=== PATIENT | female | born 1945 | race Caucasian/White ===

== ENCOUNTER 2021-05-03 09:14 | Inpatient (IN) ==
[2021-05-03 10:05] LABS: ABS Eosinophils 0.1 10^3/ul (0-0.6); ABS Lymphocytes 0.5 10^3/ul (1.0-4.8); ABS Monocytes 0.7 10^3/ul (0-0.8); Eosinophil % 2.1 %; Hematocrit 39 % (35-47); Hemoglobin 13.4 g/dL (12.0-16.0); Lymphocyte % 8.1 %; Mean Corpuscular HGB Conc 35 g/dL (31-36); Mean Corpuscular Hemoglobin 31 pg (27-31); Mean Corpuscular Volume 90 fL (80-97); Mean Platelet Volume 9.2 fL (7.4-10.4); Platelet Count 218 10^3/uL (150-450); Red Blood Count 4.33 10^6 /uL (3.70-4.87); Red Cell Distribution Width 13 % (10-15); White Blood Count 6.3 10^3/uL (3.5-10.8)
[2021-05-03 10:25] LABS: ALT 61 U/L (7-52); AST 75 U/L (13-39); Albumin 3.5 g/dL (3.2-5.2); Albumin/Globulin Ratio 1.1 (1-3); Alkaline Phosphatase 302 U/L (35-149); Anion Gap 8 mmol/L (2-11); Blood Urea Nitrogen 12 mg/dL (6-24); C Reactive Protein 159.74 mg/L (<8.01); CO2 Carbon Dioxide 30 mmol/L (22-32); Calcium 8.9 mg/dL (8.6-10.3); Chloride 97 mmol/L (101-111); Creatine Kinase 43 U/L (10-223); Globulin 3.1 g/dL (2-4); Glucose 119 mg/dL (70-100); INR 1.27 (0.86-1.15); Potassium 3.3 mmol/L (3.5-5.0); Sodium 135 mmol/L (135-145); Total Protein 6.6 g/dL (6.4-8.9); eGFR CKD-EPI 85.2 (>60)
[2021-05-03 10:26] LABS: Activated Partial Thrombo Time 28.9 seconds (26.0-38.0)
[2021-05-03 10:51] LABS: Troponin I 0.05 ng/mL (<0.03)
[2021-05-03] MEDS ORDERED: Iohexol 350 (CONTRAST) 500 ML MDV IV ONE (11:34)
[2021-05-03 15:36] LABS: PCO2 Arterial 40 mmHg (35-45); PO2 Arterial 71 mmHg (80-100)
[2021-05-03 16:40] LABS: Ferritin 651.9 ng/mL (11-307)
[2021-05-03] MEDS ORDERED: Remdesivir 100 mg Vial 200 MG in NS 0.9% 250 ml 210 ML IV ONE (16:54)
[2021-05-03] MEDS ORDERED: Azithromycin 500 mg/250 mL NS IVPB ONE (17:00)
[2021-05-03] MEDS ORDERED: Potassium Chlor 20 meq TAB.ER PO ONE (17:49)
[2021-05-03 18:14] LABS: Magnesium 2.1 mg/dL (1.9-2.7)
[2021-05-03 18:44] LABS: Troponin I 0.06 ng/mL (<0.03)
[2021-05-03] MEDS: Enoxaparin 40 MG/0.4 ML SYR SUBCUT SCH (19:32)
[2021-05-03 19:48] LABS: Urine Appearance Clear; Urine Bilirubin Negative (Negative); Urine Blood Negative (Negative); Urine Color Yellow; Urine Glucose Negative (Negative); Urine Ketones Negative (Negative); Urine Nitrite Negative (Negative); Urine Protein Negative (Negative); Urine Specific Gravity 1.032 (1.002-1.030); Urine Urobilinogen Negative (Negative)
[2021-05-03 23:26] LABS: Troponin I 0.04 ng/mL (<0.03)
[2021-05-04 05:46] LABS: ABS Lymphocytes 0.6 10^3/ul (1.0-4.8); ABS Monocytes 0.7 10^3/ul (0-0.8); ABS Neutrophils 4.3 10^3/ul (1.5-7.7); Hematocrit 38 % (35-47); Hemoglobin 12.6 g/dL (12.0-16.0); Lymphocyte % 10.6 %; Mean Corpuscular HGB Conc 34 g/dL (31-36); Mean Corpuscular Hemoglobin 31 pg (27-31); Mean Corpuscular Volume 91 fL (80-97); Mean Platelet Volume 9.6 fL (7.4-10.4); Nucleated Red Blood Cells % 0.1; Platelet Count 273 10^3/uL (150-450); Red Blood Count 4.12 10^6 /uL (3.70-4.87); Red Cell Distribution Width 14 % (10-15); White Blood Count 5.5 10^3/uL (3.5-10.8)
[2021-05-04 05:54] LABS: INR 1.29 (0.86-1.15)
[2021-05-04 06:22] LABS: Albumin 3.1 g/dL (3.2-5.2); CO2 Carbon Dioxide 27 mmol/L (22-32); Calcium 8.8 mg/dL (8.6-10.3); Chloride 102 mmol/L (101-111); Sodium 137 mmol/L (135-145)
[2021-05-04 06:28] LABS: ALT 45 U/L (7-52); Albumin/Globulin Ratio 1.1 (1-3); Alkaline Phosphatase 256 U/L (35-149); Blood Urea Nitrogen 13 mg/dL (6-24); Globulin 2.9 g/dL (2-4); Glucose 118 mg/dL (70-100); eGFR CKD-EPI 89.6 (>60)
[2021-05-04 06:29] LABS: Anion Gap 8 mmol/L (2-11)
[2021-05-04 07:54] LABS: Potassium Redraw 3.6 mmol/L (3.5-5.0)
[2021-05-04] MEDS ORDERED: Potassium Chloride LIQUID 20 MEQ/15 ML LIQUID PO ONE (07:56)
[2021-05-04] MEDS: Aspirin EC 81 mg TAB.EC (enteric coated) PO SCH (10:48)
[2021-05-04] MEDS: Cholecalciferol (VIT D3) 1,000 unit TAB PO SCH (10:50)
[2021-05-04] MEDS: Dexamethasone IV 4 MG/ML VIAL 1 ml VIAL IV SLOW PU SCH (10:50)
[2021-05-04] MEDS: Azithromycin 500 mg/250 ml NS 500 MG/250 ML BAG IVPB SCH (17:02)
[2021-05-04] MEDS: Enoxaparin 40 MG/0.4 ML SYR SUBCUT SCH (20:28)
[2021-05-04] MEDS: Remdesivir 100 mg Vial 100 MG in NS 0.9% 250 ml 230 ML IV SCH (20:28)
[2021-05-05 06:30] LABS: ABS Lymphocytes 0.6 10^3/ul (1.0-4.8); ABS Monocytes 0.8 10^3/ul (0-0.8); ABS Neutrophils 7.9 10^3/ul (1.5-7.7); Hematocrit 36 % (35-47); Hemoglobin 12.5 g/dL (12.0-16.0); Mean Corpuscular HGB Conc 35 g/dL (31-36); Mean Corpuscular Hemoglobin 31 pg (27-31); Mean Corpuscular Volume 89 fL (80-97); Mean Platelet Volume 9.8 fL (7.4-10.4); Platelet Count 290 10^3/uL (150-450); Red Blood Count 4.05 10^6 /uL (3.70-4.87); Red Cell Distribution Width 14 % (10-15); White Blood Count 9.3 10^3/uL (3.5-10.8)
[2021-05-05 06:47] LABS: Albumin/Globulin Ratio 1.1 (1-3); Calcium 8.9 mg/dL (8.6-10.3); Globulin 2.7 g/dL (2-4); INR 1.27 (0.86-1.15); Total Bilirubin 0.6 mg/dL (0.2-1.0); Total Protein 5.7 g/dL (6.4-8.9); eGFR CKD-EPI 79.9 (>60)
[2021-05-05] MEDS: Cholecalciferol (VIT D3) 1,000 unit TAB PO SCH (09:27)
[2021-05-05] MEDS: Dexamethasone IV 4 MG/ML VIAL 1 ml VIAL IV SLOW PU SCH (09:27)
[2021-05-05] MEDS: Aspirin EC 81 mg TAB.EC (enteric coated) PO SCH (09:27)
[2021-05-05] MEDS: Polyethylene Glycol 3350 17 GM PACKET PO SCH (12:46)
[2021-05-05] MEDS: Azithromycin 500 mg/250 ml NS 500 MG/250 ML BAG IVPB SCH (16:34)
[2021-05-05] MEDS: Enoxaparin 40 MG/0.4 ML SYR SUBCUT SCH (20:23)
[2021-05-05] MEDS: Remdesivir 100 mg Vial 100 MG in NS 0.9% 250 ml 230 ML IV SCH (20:23)
[2021-05-06] MEDS: Dexamethasone IV 4 MG/ML VIAL 1 ml VIAL IV SLOW PU SCH (08:52)
[2021-05-06] MEDS: Polyethylene Glycol 3350 17 GM PACKET PO SCH (08:52)
[2021-05-06] MEDS: Cholecalciferol (VIT D3) 1,000 unit TAB PO SCH (09:21)
[2021-05-06] MEDS: Aspirin EC 81 mg TAB.EC (enteric coated) PO SCH (09:21)
[2021-05-06 10:39] LABS: ABS Eosinophils 0.1 10^3/ul (0-0.6); ABS Lymphocytes 0.6 10^3/ul (1.0-4.8); ABS Monocytes 0.8 10^3/ul (0-0.8); ABS Neutrophils 8.7 10^3/ul (1.5-7.7); Eosinophil % 0.8 %; Hematocrit 37 % (35-47); Hemoglobin 12.6 g/dL (12.0-16.0); Lymphocyte % 5.6 %; Mean Corpuscular HGB Conc 34 g/dL (31-36); Mean Corpuscular Hemoglobin 31 pg (27-31); Mean Corpuscular Volume 90 fL (80-97); Mean Platelet Volume 9.2 fL (7.4-10.4); Platelet Count 268 10^3/uL (150-450); Red Blood Count 4.11 10^6 /uL (3.70-4.87); Red Cell Distribution Width 14 % (10-15); White Blood Count 10.1 10^3/uL (3.5-10.8)
[2021-05-06 10:55] LABS: INR 1.29 (0.86-1.15)
[2021-05-06 10:57] LABS: ALT 42 U/L (7-52); Albumin 2.9 g/dL (3.2-5.2); Albumin/Globulin Ratio 1.1 (1-3); Alkaline Phosphatase 211 U/L (35-149); Blood Urea Nitrogen 22 mg/dL (6-24); CO2 Carbon Dioxide 25 mmol/L (22-32); Calcium 8.8 mg/dL (8.6-10.3); Chloride 104 mmol/L (101-111); Globulin 2.6 g/dL (2-4); Glucose 117 mg/dL (70-100); Sodium 137 mmol/L (135-145); Total Protein 5.5 g/dL (6.4-8.9)
[2021-05-06 11:26] LABS: Anion Gap 8 mmol/L (2-11)
[2021-05-06] MEDS ORDERED: Furosemide 40 mg/4 ml IV VIAL IV ONE (13:12)
[2021-05-06 14:34] LABS: Potassium Redraw 4.2 mmol/L (3.5-5.0)
[2021-05-06] MEDS: Azithromycin 500 mg/250 ml NS 500 MG/250 ML BAG IVPB SCH (17:04)
[2021-05-06] MEDS: Remdesivir 100 mg Vial 100 MG in NS 0.9% 250 ml 230 ML IV SCH (19:59)
[2021-05-06] MEDS: Enoxaparin 40 MG/0.4 ML SYR SUBCUT SCH (20:00)
[2021-05-07 05:35] LABS: INR 1.34 (0.86-1.15)
[2021-05-07 05:45] LABS: Albumin 3.1 g/dL (3.2-5.2); Albumin/Globulin Ratio 1.2 (1-3); Calcium 8.5 mg/dL (8.6-10.3); Globulin 2.5 g/dL (2-4); Potassium 3.7 mmol/L (3.5-5.0); Total Bilirubin 0.7 mg/dL (0.2-1.0); Total Protein 5.6 g/dL (6.4-8.9); eGFR CKD-EPI 63.7 (>60)
[2021-05-07] MEDS ORDERED: Furosemide 40 mg/4 ml IV VIAL IV ONE (07:56)
[2021-05-07] MEDS: Aspirin EC 81 mg TAB.EC (enteric coated) PO SCH (08:24)
[2021-05-07] MEDS: Cholecalciferol (VIT D3) 1,000 unit TAB PO SCH (08:24)
[2021-05-07] MEDS: Dexamethasone IV 4 MG/ML VIAL 1 ml VIAL IV SLOW PU SCH (08:25)
[2021-05-07] MEDS: Polyethylene Glycol 3350 17 GM PACKET PO SCH (08:26)
[2021-05-07] MEDS ORDERED: Furosemide 20 mg/2 ml IV VIAL IV ONE (17:18)
[2021-05-07] MEDS: Enoxaparin 40 MG/0.4 ML SYR SUBCUT SCH (20:21)
[2021-05-07] MEDS: Remdesivir 100 mg Vial 100 MG in NS 0.9% 250 ml 230 ML IV SCH (20:24)
[2021-05-08] MEDS ORDERED: Furosemide 40 mg/4 ml IV VIAL IV ONE (07:16)
[2021-05-08 07:23] LABS: INR 1.33 (0.86-1.15)
[2021-05-08 07:24] LABS: Albumin 3.2 g/dL (3.2-5.2); Albumin/Globulin Ratio 1.2 (1-3); Calcium 8.9 mg/dL (8.6-10.3); Globulin 2.7 g/dL (2-4); Magnesium 2.1 mg/dL (1.9-2.7); Phosphorus 3.8 mg/dL (2.5-5.0); Potassium 3.4 mmol/L (3.5-5.0); Total Bilirubin 0.6 mg/dL (0.2-1.0); Total Protein 5.9 g/dL (6.4-8.9); eGFR CKD-EPI 55.1 (>60)
[2021-05-08] MEDS: Dexamethasone IV 4 MG/ML VIAL 1 ml VIAL IV SLOW PU SCH (09:42)
[2021-05-08] MEDS: Aspirin EC 81 mg TAB.EC (enteric coated) PO SCH (09:43)
[2021-05-08] MEDS: Cholecalciferol (VIT D3) 1,000 unit TAB PO SCH (09:43)
[2021-05-08] MEDS: Polyethylene Glycol 3350 17 GM PACKET PO SCH (09:49)
[2021-05-08] MEDS: cefTRIAXone 1 gm/50 mL NS BAG 1 GM/50 ML BAG IVPB SCH (11:18)
[2021-05-08] MEDS: Enoxaparin 40 MG/0.4 ML SYR SUBCUT SCH (22:07)
[2021-05-09 06:22] LABS: Hematocrit 41 % (35-47); Hemoglobin 13.9 g/dL (12.0-16.0); Mean Corpuscular HGB Conc 34 g/dL (31-36); Mean Corpuscular Hemoglobin 31 pg (27-31); Mean Corpuscular Volume 91 fL (80-97); Mean Platelet Volume 9.8 fL (7.4-10.4); Platelet Count 311 10^3/uL (150-450); Red Blood Count 4.54 10^6 /uL (3.70-4.87); Red Cell Distribution Width 14 % (10-15); White Blood Count 8.8 10^3/uL (3.5-10.8)
[2021-05-09 06:35] LABS: Albumin 3.5 g/dL (3.2-5.2); Albumin/Globulin Ratio 1.2 (1-3); Calcium 9.2 mg/dL (8.6-10.3); Globulin 2.9 g/dL (2-4); Magnesium 2.3 mg/dL (1.9-2.7); Potassium 3.7 mmol/L (3.5-5.0); Total Bilirubin 0.7 mg/dL (0.2-1.0); Total Protein 6.4 g/dL (6.4-8.9)
[2021-05-09] MEDS ORDERED: Furosemide 40 mg/4 ml IV VIAL IV ONE (07:16)
[2021-05-09] MEDS: Polyethylene Glycol 3350 17 GM PACKET PO SCH (08:02)
[2021-05-09] MEDS: Dexamethasone IV 4 MG/ML VIAL 1 ml VIAL IV SLOW PU SCH (08:03)
[2021-05-09] MEDS: Cholecalciferol (VIT D3) 1,000 unit TAB PO SCH (08:03)
[2021-05-09] MEDS: Aspirin EC 81 mg TAB.EC (enteric coated) PO SCH (08:03)
[2021-05-09] MEDS: cefTRIAXone 1 gm/50 mL NS BAG 1 GM/50 ML BAG IVPB SCH (10:58)
[2021-05-09] MEDS: Enoxaparin 40 MG/0.4 ML SYR SUBCUT SCH (21:25)
[2021-05-10 05:40] LABS: Hematocrit 38 % (35-47); Hemoglobin 12.9 g/dL (12.0-16.0); Mean Corpuscular HGB Conc 34 g/dL (31-36); Mean Corpuscular Hemoglobin 30 pg (27-31); Mean Corpuscular Volume 89 fL (80-97); Mean Platelet Volume 10.3 fL (7.4-10.4); Platelet Count 286 10^3/uL (150-450); Red Blood Count 4.27 10^6 /uL (3.70-4.87); Red Cell Distribution Width 14 % (10-15); White Blood Count 8.8 10^3/uL (3.5-10.8)
[2021-05-10 06:02] LABS: Calcium 8.8 mg/dL (8.6-10.3); Magnesium 2.2 mg/dL (1.9-2.7); Potassium 3.6 mmol/L (3.5-5.0); eGFR CKD-EPI 59.1 (>60)
[2021-05-10] MEDS ORDERED: Furosemide 40 mg/4 ml IV VIAL IV ONE (08:21)
[2021-05-10] MEDS: Polyethylene Glycol 3350 17 GM PACKET PO SCH (09:44)
[2021-05-10] MEDS: Dexamethasone IV 4 MG/ML VIAL 1 ml VIAL IV SLOW PU SCH (09:44)
[2021-05-10] MEDS: Cholecalciferol (VIT D3) 1,000 unit TAB PO SCH (09:45)
[2021-05-10] MEDS: Aspirin EC 81 mg TAB.EC (enteric coated) PO SCH (09:45)
[2021-05-10] MEDS: cefTRIAXone 1 gm/50 mL NS BAG 1 GM/50 ML BAG IVPB SCH (11:38)
[2021-05-10] MEDS: Enoxaparin 40 MG/0.4 ML SYR SUBCUT SCH (20:57)
[2021-05-11 06:08] LABS: Albumin 3.3 g/dL (3.2-5.2); Albumin/Globulin Ratio 1.3 (1-3); Calcium 8.9 mg/dL (8.6-10.3); Globulin 2.6 g/dL (2-4); Magnesium 2.4 mg/dL (1.9-2.7); Potassium 3.7 mmol/L (3.5-5.0); Total Bilirubin 0.8 mg/dL (0.2-1.0); Total Protein 5.9 g/dL (6.4-8.9)
[2021-05-11] MEDS: Dexamethasone IV 4 MG/ML VIAL 1 ml VIAL IV SLOW PU SCH (10:16)
[2021-05-11] MEDS: Aspirin EC 81 mg TAB.EC (enteric coated) PO SCH (10:18)
[2021-05-11] MEDS: Cholecalciferol (VIT D3) 1,000 unit TAB PO SCH (10:18)
[2021-05-11] MEDS: Polyethylene Glycol 3350 17 GM PACKET PO SCH (10:18)
[2021-05-11] MEDS: cefTRIAXone 1 gm/50 mL NS BAG 1 GM/50 ML BAG IVPB SCH (10:24)
[2021-05-11 11:26] VITALS: BP 122/64
== END 2021-05-11 16:35 | disposition home or self-care (01) | DRG 177 ==
LOC: ED 09:14 → EDHOLD 16:48 → SUATTDRO 16:48 → MED 20:48
PROVIDERS: ADMIT Internal Medicine; ATTEND Hospitalist

== ENCOUNTER 2023-07-10 11:57 | Inpatient (IN) ==
[2023-07-10 15:19] LABS: INR 0.99 (0.83-1.13)
[2023-07-10 15:34] LABS: Calcium 8.6 mg/dL (8.6-10.3); Creatinine, Serum 0.86 mg/dL (0.51-0.95); Potassium 4.4 mmol/L (3.5-5.0); eGFR CKD-EPI 69.1 (>60)
[2023-07-10 15:37] LABS: Albumin 3.4 g/dL (3.2-5.2); Albumin/Globulin Ratio 3.4 (1-3); Magnesium 2.5 mg/dL (1.9-2.7); Total Bilirubin 21.6 mg/dL (0.2-1.0); Total Protein 4.4 g/dL (6.4-8.9)
[2023-07-10] MEDS: Iohexol 300 (CONTRAST) 10 ML SDV IV ONE (17:43)
[2023-07-10] MEDS: NS 0.9% 1000 ml BAG 1,000 ML IV ONE (18:09)
[2023-07-10 19:02] LABS: Anisocytosis 3+; Hematocrit 23.6 % (35-45); Hemoglobin 8.2 g/dL (11.5-14.3); Hypochromasia 2+; Mean Corpuscular Hemoglobin 31.8 pg (27-33); Mean Corpuscular Hgb Conc 34.7 g/dL (31-36); Mean Corpuscular Volume 91.7 fL (80-97); Mean Platelet Volume 10.5 fL (7.5-11.2); Platelet Count 66 10^3/uL (150-450); Polychromasia 1+; Red Blood Count 2.58 10^6/uL (3.63-4.92); Red Cell Distribution Width 21.5 % (12-17); Target Cells 2+
[2023-07-11 05:04] LABS: Direct Bilirubin 9.4 mg/dL (0.03-0.18); Indirect Bilirubin 9.6 mg/dL (0.3-1.0); Phosphorus 3.9 mg/dL (2.5-5.0); Uric Acid 2.4 mg/dL (2.3-6.6)
[2023-07-11 05:43] LABS: Creatinine, Serum 0.82 mg/dL (0.51-0.95); eGFR CKD-EPI 73.2 (>60)
[2023-07-11 05:46] LABS: Albumin/Globulin Ratio 3.3 (1-3); Globulin 0.9 g/dL (2-4); Magnesium 2.3 mg/dL (1.9-2.7); Total Protein 3.9 g/dL (6.4-8.9)
[2023-07-11 05:58] LABS: Hematocrit 25.7 % (35-45); Hemoglobin 8.7 g/dL (11.5-14.3); Mean Corpuscular Hemoglobin 31.3 pg (27-33); Mean Corpuscular Hgb Conc 33.9 g/dL (31-36); Mean Corpuscular Volume 92.4 fL (80-97); Mean Platelet Volume 10.1 fL (7.5-11.2); Platelet Count 68 10^3/uL (150-450); Red Blood Count 2.78 10^6/uL (3.63-4.92); Red Cell Distribution Width 20.8 % (12-17); White Blood Count 6.6 10^3/uL (3.8-11.8)
[2023-07-11] MEDS: Enoxaparin 40 MG/0.4 ML SYR SUBCUT SCH (06:21)
[2023-07-11 06:51] LABS: Activated Partial Thrombo Time 21.6 seconds (26.0-38.0); INR 1.05 (0.83-1.13)
[2023-07-11] MEDS: Aspirin EC 81 mg TAB.EC (enteric coated) PO SCH (09:39)
[2023-07-11] MEDS: Polyethylene Glycol 3350 17 GM PACKET PO SCH (09:40)
[2023-07-11] MEDS: Cholestyramine Resin 4 GM POWDER PO SCH (09:40)
[2023-07-11 11:04] LABS: ABS Lymphocytes 0.1 10^3/ul (1.0-4.8); ABS Monocytes 0.1 10^3/ul (0.0-0.9); ABS Neutrophils 6.4 10^3/ul (1.5-7.6)
[2023-07-11] MEDS ORDERED: Senna TAB 8.6 mg TAB PO PRN (12:11)
[2023-07-11] MEDS ORDERED: Polyethylene Glycol 3350 17 GM PACKET PO PRN (12:11)
[2023-07-11] MEDS: Magnesium Hydroxide LIQ 30 ML UDC PO SCH (13:16)
[2023-07-11] MEDS ORDERED: Sulfur Hexaflouride MICROSPHR 25 MG VIAL ONE (15:56)
[2023-07-12 08:10] LABS: INR 1.08 (0.83-1.13)
[2023-07-12 08:23] LABS: Calcium 7.6 mg/dL (8.6-10.3); Creatinine, Serum 0.8 mg/dL (0.51-0.95); Potassium 4.5 mmol/L (3.5-5.0); eGFR CKD-EPI 75.4 (>60)
[2023-07-12 08:35] LABS: Anisocytosis 3+; Hematocrit 19.9 % (35-45); Macrocytosis 1+; Mean Corpuscular Hemoglobin 31.9 pg (27-33); Mean Corpuscular Hgb Conc 35.1 g/dL (31-36); Mean Platelet Volume 9.6 fL (7.5-11.2); Microcytosis 1+; Platelet Count 53 10^3/uL (150-450); Red Blood Count 2.19 10^6/uL (3.63-4.92); Red Cell Distribution Width 22.3 % (12-17); White Blood Count 2.8 10^3/uL (3.8-11.8)
[2023-07-12 08:37] LABS: Albumin 2.6 g/dL (3.2-5.2); Albumin/Globulin Ratio 3.3 (1-3); Globulin 0.8 g/dL (2-4); Magnesium 2.6 mg/dL (1.9-2.7); Phosphorus 2.4 mg/dL (2.5-5.0); Total Bilirubin 14.2 mg/dL (0.2-1.0); Total Protein 3.4 g/dL (6.4-8.9)
[2023-07-12 08:38] LABS: ABS Lymphocytes 0.1 10^3/ul (1.0-4.8); ABS Neutrophils 2.7 10^3/ul (1.5-7.6)
[2023-07-12] MEDS: Saline NASAL SPRAY 0.65% BTL BOTH NARES PRN (15:07)
[2023-07-12] MEDS: Al Hydrox/Mg Hydrox/Simet LIQ 30 ML UDC PO PRN (15:07)
[2023-07-12] MEDS: Senna TAB 8.6 mg TAB PO SCH (21:14)
[2023-07-13 06:13] LABS: INR 0.98 (0.83-1.13)
[2023-07-13 06:19] LABS: Hematocrit 23.9 % (35-45); Hemoglobin 8.2 g/dL (11.5-14.3); Mean Corpuscular Hgb Conc 34.4 g/dL (31-36); Mean Corpuscular Volume 90.3 fL (80-97); Mean Platelet Volume 9.7 fL (7.5-11.2); Platelet Count 47 10^3/uL (150-450); Red Blood Count 2.65 10^6/uL (3.63-4.92); Red Cell Distribution Width 21.1 % (12-17); White Blood Count 1.9 10^3/uL (3.8-11.8)
[2023-07-13 06:44] LABS: Calcium 7.6 mg/dL (8.6-10.3); Creatinine, Serum 0.74 mg/dL (0.51-0.95); Potassium 4.5 mmol/L (3.5-5.0); eGFR CKD-EPI 82.8 (>60)
[2023-07-13 06:48] LABS: Anisocytosis 1+; Polychromasia 1+
[2023-07-13 06:49] LABS: ABS Lymphocytes 0.1 10^3/ul (1.0-4.8); ABS Monocytes 0.1 10^3/ul (0.0-0.9); ABS Neutrophils 1.7 10^3/ul (1.5-7.6)
[2023-07-13 07:26] LABS: Albumin 2.7 g/dL (3.2-5.2); Globulin 0.9 g/dL (2-4); Magnesium 2.9 mg/dL (1.9-2.7); Phosphorus 1.7 mg/dL (2.5-5.0); Total Bilirubin 12.5 mg/dL (0.2-1.0); Total Protein 3.6 g/dL (6.4-8.9)
[2023-07-14 05:15] LABS: INR 0.96 (0.83-1.13)
[2023-07-14 05:53] LABS: Calcium 7.3 mg/dL (8.6-10.3); Creatinine, Serum 0.78 mg/dL (0.51-0.95); Potassium 4.4 mmol/L (3.5-5.0); eGFR CKD-EPI 77.7 (>60)
[2023-07-14 06:01] LABS: Albumin 2.7 g/dL (3.2-5.2); Albumin/Globulin Ratio 2.7 (1-3); Magnesium 2.7 mg/dL (1.9-2.7); Phosphorus 1.9 mg/dL (2.5-5.0); Total Bilirubin 12.8 mg/dL (0.2-1.0); Total Protein 3.7 g/dL (6.4-8.9)
[2023-07-14 07:15] LABS: Anisocytosis 3+; Hematocrit 23.3 % (35-45); Hemoglobin 8.1 g/dL (11.5-14.3); Macrocytosis 1+; Mean Corpuscular Hemoglobin 31.3 pg (27-33); Mean Corpuscular Hgb Conc 34.7 g/dL (31-36); Mean Corpuscular Volume 90.3 fL (80-97); Mean Platelet Volume 9.5 fL (7.5-11.2); Microcytosis 1+; Platelet Count 38 10^3/uL (150-450); Polychromasia 1+; Red Blood Count 2.58 10^6/uL (3.63-4.92); White Blood Count 2.1 10^3/uL (3.8-11.8)
[2023-07-14 07:17] LABS: ABS Lymphocytes 0.1 10^3/ul (1.0-4.8)
[2023-07-14] MEDS ORDERED: Enoxaparin 40 MG/0.4 ML SYR SUBCUT SCH (09:00)
[2023-07-14] MEDS: NS 0.9% IVPB ONE ×2 (14:08→18:21)
[2023-07-14] MEDS: METHYLPREDNISOLONE SOD SUCC IVPB ONE ×2 (14:08→18:21)
[2023-07-15 05:59] LABS: Calcium 7.4 mg/dL (8.6-10.3); Creatinine, Serum 0.71 mg/dL (0.51-0.95); Potassium 4.5 mmol/L (3.5-5.0)
[2023-07-15 06:13] LABS: Anisocytosis 1+; Hematocrit 20.8 % (35-45); Hemoglobin 7.3 g/dL (11.5-14.3); Large Platelets Present; Mean Corpuscular Hemoglobin 32.1 pg (27-33); Mean Corpuscular Volume 91.8 fL (80-97); Mean Platelet Volume 9.6 fL (7.5-11.2); Platelet Count 42 10^3/uL (150-450); Polychromasia 1+; Red Blood Count 2.27 10^6/uL (3.63-4.92); Red Cell Distribution Width 21.9 % (12-17); White Blood Count 3.2 10^3/uL (3.8-11.8)
[2023-07-15 06:14] LABS: ABS Lymphocytes 0.1 10^3/ul (1.0-4.8); ABS Monocytes 0.1 10^3/ul (0.0-0.9)
[2023-07-15 06:26] LABS: Albumin 2.6 g/dL (3.2-5.2); Albumin/Globulin Ratio 3.3 (1-3); Globulin 0.8 g/dL (2-4); Magnesium 2.4 mg/dL (1.9-2.7); Total Protein 3.4 g/dL (6.4-8.9)
[2023-07-15] MEDS: NS 0.9% IVPB ONE (16:11)
[2023-07-15] MEDS: METHYLPREDNISOLONE SOD SUCC IVPB ONE (16:11)
[2023-07-15] MEDS: Enoxaparin 40 MG/0.4 ML SYR SUBCUT SCH (21:32)
[2023-07-16 08:05] LABS: Calcium 7.4 mg/dL (8.6-10.3); Creatinine, Serum 0.73 mg/dL (0.51-0.95); Potassium 4.3 mmol/L (3.5-5.0); eGFR CKD-EPI 84.1 (>60)
[2023-07-16 08:06] LABS: Hematocrit 23.4 % (35-45); Hemoglobin 8.1 g/dL (11.5-14.3); Mean Corpuscular Hemoglobin 31.8 pg (27-33); Mean Corpuscular Hgb Conc 34.6 g/dL (31-36); Mean Corpuscular Volume 91.9 fL (80-97); Mean Platelet Volume 10.2 fL (7.5-11.2); Platelet Count 49 10^3/uL (150-450); Red Blood Count 2.55 10^6/uL (3.63-4.92); Red Cell Distribution Width 19.7 % (12-17); White Blood Count 4.8 10^3/uL (3.8-11.8)
[2023-07-16 08:21] LABS: Albumin 2.5 g/dL (3.2-5.2); Albumin/Globulin Ratio 3.1 (1-3); Globulin 0.8 g/dL (2-4); Magnesium 2.2 mg/dL (1.9-2.7); Phosphorus 2.4 mg/dL (2.5-5.0); Total Bilirubin 12.2 mg/dL (0.2-1.0); Total Protein 3.3 g/dL (6.4-8.9)
[2023-07-16 10:27] LABS: Anisocytosis 2+; Hypochromasia 1+; Polychromasia 1+
[2023-07-16 10:41] LABS: ABS Lymphocytes 0.1 10^3/ul (1.0-4.8); ABS Monocytes 0.3 10^3/ul (0.0-0.9); ABS Neutrophils 4.4 10^3/ul (1.5-7.6)
[2023-07-16] MEDS: METHYLPREDNISOLONE SOD IV ONE (14:15)
[2023-07-16] MEDS: NS 0.9% IV ONE (14:15)
[2023-07-17 06:28] LABS: Calcium 7.5 mg/dL (8.6-10.3); Creatinine, Serum 0.74 mg/dL (0.51-0.95); Potassium 4.4 mmol/L (3.5-5.0); eGFR CKD-EPI 82.8 (>60)
[2023-07-17 06:50] LABS: Albumin 2.6 g/dL (3.2-5.2); Albumin/Globulin Ratio 2.4 (1-3); Globulin 1.1 g/dL (2-4); Magnesium 2.2 mg/dL (1.9-2.7); Total Bilirubin 13.1 mg/dL (0.2-1.0); Total Protein 3.7 g/dL (6.4-8.9)
[2023-07-17 07:34] LABS: Hematocrit 22.9 % (35-45); Mean Corpuscular Hemoglobin 32.4 pg (27-33); Mean Corpuscular Hgb Conc 35.1 g/dL (31-36); Mean Corpuscular Volume 92.4 fL (80-97); Mean Platelet Volume 10.6 fL (7.5-11.2); Platelet Count 67 10^3/uL (150-450); Red Blood Count 2.48 10^6/uL (3.63-4.92); White Blood Count 5.8 10^3/uL (3.8-11.8)
[2023-07-17 07:35] LABS: Anisocytosis 2+; Macrocytosis 1+; Microcytosis 1+; Polychromasia 1+
[2023-07-17] MEDS: Enoxaparin 40 MG/0.4 ML SYR SUBCUT SCH (13:11)
[2023-07-17] MEDS: Famotidine IV 10 MG/ML 2 ml VIAL (20 mg) IV SLOW PU SCH (13:12)
[2023-07-17] MEDS: PALONOSETRON HCL 0.05 MG/ML (0.25 MG) SYRINGE (0.05 MG/ML) IV ONE (13:12)
[2023-07-17] MEDS: Dexamethasone IV 4 MG/ML VIAL 1 ml VIAL IV SLOW PU SCH (13:34)
[2023-07-17 14:01] LABS: ABS Lymphocytes 0.8 10^3/ul (1.0-4.8); ABS Monocytes 0.2 10^3/ul (0.0-0.9); ABS Neutrophils 4.9 10^3/ul (1.5-7.6)
[2023-07-17] MEDS: MAGNESIUM SULFATE IVPB ONE ×2 (14:17→17:33)
[2023-07-17] MEDS: NS 0.9% IVPB ONE ×3 (14:17→17:33)
[2023-07-17] MEDS: POTASSIUM CHLORIDE IVPB ONE ×2 (14:17→17:33)
[2023-07-17] MEDS: GEMCITABINE IVPB ONE (14:18)
[2023-07-17] MEDS: [UNRECOGNIZED DRUG - OTHER] IVPB ONE (14:18)
[2023-07-17] MEDS: CISPLATIN IVPB ONE (15:33)
[2023-07-18 06:18] LABS: Albumin 2.3 g/dL (3.2-5.2); Albumin/Globulin Ratio 2.9 (1-3); Creatinine, Serum 0.65 mg/dL (0.51-0.95); Globulin 0.8 g/dL (2-4); Magnesium 2.2 mg/dL (1.9-2.7); Potassium 4.2 mmol/L (3.5-5.0); Total Bilirubin 11.3 mg/dL (0.2-1.0); Total Protein 3.1 g/dL (6.4-8.9); eGFR CKD-EPI 90.1 (>60)
[2023-07-18 08:02] LABS: Hematocrit 18.2 % (35-45); Hemoglobin 6.4 g/dL (11.5-14.3); Mean Corpuscular Hemoglobin 32.9 pg (27-33); Mean Corpuscular Hgb Conc 34.9 g/dL (31-36); Mean Corpuscular Volume 94.2 fL (80-97); Mean Platelet Volume 9.6 fL (7.5-11.2); Platelet Count 70 10^3/uL (150-450); Red Blood Count 1.94 10^6/uL (3.63-4.92); Red Cell Distribution Width 25.4 % (12-17); White Blood Count 5.1 10^3/uL (3.8-11.8)
[2023-07-18 10:30] LABS: ABS Lymphocytes 0.4 10^3/uL (1.0-4.8); ABS Monocytes 0.4 10^3/uL (0.0-0.9); ABS Neutrophils 4.4 10^3/uL (1.5-7.6); ABS Nucleated RBC 0.21 10^3/ul; Anisocytosis 3+; Eosinophil % 0.2 %; Lymphocyte % 7.1 %; Macrocytosis 1+; Microcytosis 1+; Nucleated Red Blood Cells % 4.1 %/100WBC (0.0-0.8); Polychromasia 1+
[2023-07-18 18:33] LABS: Hematocrit 25.4 % (35-45); Hemoglobin 8.7 g/dL (11.5-14.3); Mean Corpuscular Hemoglobin 31.7 pg (27-33); Mean Corpuscular Hgb Conc 34.3 g/dL (31-36); Mean Corpuscular Volume 92.3 fL (80-97); Mean Platelet Volume 10.1 fL (7.5-11.2); Platelet Count 85 10^3/uL (150-450); Red Blood Count 2.75 10^6/uL (3.63-4.92); Red Cell Distribution Width 18.6 % (12-17); White Blood Count 6.7 10^3/uL (3.8-11.8)
[2023-07-18 19:27] LABS: RBC Morphology Normal (Normal)
[2023-07-18 19:28] LABS: ABS Lymphocytes 1.4 10^3/uL (1.0-4.8); ABS Monocytes 0.2 10^3/uL (0.0-0.9); ABS Neutrophils 5.1 10^3/uL (1.5-7.6); ABS Nucleated RBC 0.07 10^3/ul; Eosinophil % 0.2 %; Lymphocyte % 21.2 %
[2023-07-19] MEDS: Calcium Carb (TUMS) 500 mg CHEW TAB PO PRN (01:45)
[2023-07-19 07:00] LABS: Calcium 7.2 mg/dL (8.6-10.3); Creatinine, Serum 0.63 mg/dL (0.51-0.95); Potassium 4.5 mmol/L (3.5-5.0); eGFR CKD-EPI 90.7 (>60)
[2023-07-19 07:06] LABS: Albumin 2.4 g/dL (3.2-5.2); Globulin 0.8 g/dL (2-4); Magnesium 2.3 mg/dL (1.9-2.7); Total Bilirubin 11.4 mg/dL (0.2-1.0); Total Protein 3.2 g/dL (6.4-8.9)
[2023-07-19 08:00] LABS: Hematocrit 21.3 % (35-45); Hemoglobin 7.4 g/dL (11.5-14.3); Mean Corpuscular Hemoglobin 32.2 pg (27-33); Mean Corpuscular Hgb Conc 34.8 g/dL (31-36); Mean Corpuscular Volume 92.5 fL (80-97); Mean Platelet Volume 10.3 fL (7.5-11.2); Platelet Count 77 10^3/uL (150-450); Red Cell Distribution Width 18.5 % (12-17)
[2023-07-19 08:59] LABS: ABS Lymphocytes 0.6 10^3/uL (1.0-4.8); ABS Monocytes 0.3 10^3/uL (0.0-0.9); ABS Neutrophils 5.1 10^3/uL (1.5-7.6); ABS Nucleated RBC 0.03 10^3/ul; Anisocytosis 2+; Burr Cells 1+; Eosinophil % 0.3 %; Lymphocyte % 10.7 %; Nucleated Red Blood Cells % 0.5 %/100WBC (0.0-0.8)
[2023-07-20 06:57] LABS: Hemoglobin 8.3 g/dL (11.5-14.3); Mean Corpuscular Hemoglobin 30.7 pg (27-33); Mean Corpuscular Hgb Conc 34.7 g/dL (31-36); Mean Corpuscular Volume 88.5 fL (80-97); Mean Platelet Volume 9.9 fL (7.5-11.2); Platelet Count 80 10^3/uL (150-450); Red Blood Count 2.71 10^6/uL (3.63-4.92); Red Cell Distribution Width 19.5 % (12-17); White Blood Count 5.6 10^3/uL (3.8-11.8)
[2023-07-20 09:45] LABS: ABS Nucleated RBC 0.01 10^3/ul; Anisocytosis 2+; Burr Cells 1+; Microcytosis 1+; Nucleated Red Blood Cells % 0.2 %/100WBC (0.0-0.8); Polychromasia 1+
[2023-07-20] MEDS: Lactated Ringers 1000 ml BAG IV.FLUID IV ONE (21:26)
[2023-07-20] MEDS: Lactated Ringers 1000 ml BAG 1,000 ML IV ONE ×3 (21:27→22:47)
[2023-07-20 21:29] LABS: ABS Basophils 0.1 10^3/uL (0.0-0.1); ABS Lymphocytes 0.5 10^3/uL (1.0-4.8); ABS Monocytes 0.2 10^3/uL (0.0-0.9); ABS Neutrophils 5.4 10^3/uL (1.5-7.6); ABS Nucleated RBC 0.01 10^3/ul; Hematocrit 22.5 % (35-45); Hemoglobin 7.8 g/dL (11.5-14.3); Lymphocyte % 7.8 %; Mean Corpuscular Hemoglobin 31.2 pg (27-33); Mean Corpuscular Hgb Conc 34.9 g/dL (31-36); Mean Corpuscular Volume 89.5 fL (80-97); Mean Platelet Volume 10.4 fL (7.5-11.2); Nucleated Red Blood Cells % 0.1 %/100WBC (0.0-0.8); Platelet Count 99 10^3/uL (150-450); Red Blood Count 2.51 10^6/uL (3.63-4.92); Red Cell Distribution Width 19.9 % (12-17); White Blood Count 6.1 10^3/uL (3.8-11.8)
[2023-07-20 21:46] LABS: Albumin 2.6 g/dL (3.2-5.2); Albumin/Globulin Ratio 2.9 (1-3); Calcium 7.6 mg/dL (8.6-10.3); Creatinine, Serum 0.99 mg/dL (0.51-0.95); Globulin 0.9 g/dL (2-4); Magnesium 2.7 mg/dL (1.9-2.7); Potassium 5.5 mmol/L (3.5-5.0); Total Bilirubin 13.1 mg/dL (0.2-1.0); Total Protein 3.5 g/dL (6.4-8.9); eGFR CKD-EPI 58.4 (>60)
[2023-07-20] MEDS: NS 0.9% 500 ml BAG 500 ML IV ONE (22:47)
[2023-07-21 00:49] LABS: High Sensitivity Troponin 1 Hr 106 pg/mL (<15)
[2023-07-21 06:31] LABS: Hematocrit 23.8 % (35-45); Hemoglobin 8.2 g/dL (11.5-14.3); Mean Corpuscular Hemoglobin 30.1 pg (27-33); Mean Corpuscular Hgb Conc 34.6 g/dL (31-36); Red Blood Count 2.74 10^6/uL (3.63-4.92); Red Cell Distribution Width 17.6 % (12-17); White Blood Count 1.5 10^3/uL (3.8-11.8)
[2023-07-21 06:51] LABS: Calcium 7.3 mg/dL (8.6-10.3); Creatinine, Serum 0.76 mg/dL (0.51-0.95); Potassium 4.6 mmol/L (3.5-5.0); eGFR CKD-EPI 80.2 (>60)
[2023-07-21 06:54] LABS: Albumin 2.4 g/dL (3.2-5.2); Albumin/Globulin Ratio 2.4 (1-3); Total Bilirubin 13.2 mg/dL (0.2-1.0); Total Protein 3.4 g/dL (6.4-8.9)
[2023-07-21 07:16] LABS: ABS Lymphocytes 0.1 10^3/uL (1.0-4.8); ABS Neutrophils 1.3 10^3/uL (1.5-7.6); ABS Nucleated RBC 0.02 10^3/ul; Acanthocytes 2+; Anisocytosis 2+; Eosinophil % 0.2 %; Lymphocyte % 6.4 %; Mean Platelet Volume 9.9 fL (7.5-11.2); Platelet Count 71 10^3/uL (150-450); Spherocytes 1+
[2023-07-21] MEDS: Pantoprazole VIAL 40 MG VIAL IV SCH (13:20)
[2023-07-21] MEDS: Magnesium Hydroxide LIQ 30 ML UDC PO PRN (13:21)
[2023-07-21 15:29] LABS: Immature Retic Fraction 0.25
[2023-07-21 15:58] LABS: Corrected Retic Count 2.2 % (0.5-2.2); Hematocrit for Retic CNT 22.9 % (35-45); RBC Retic Count 2.61 10^6/ul (3.63-4.92)
[2023-07-21] MEDS: Enoxaparin 40 MG/0.4 ML SYR SUBCUT SCH (20:57)
[2023-07-22 06:05] LABS: Albumin 2.3 g/dL (3.2-5.2); Albumin/Globulin Ratio 2.6 (1-3); Calcium 7.5 mg/dL (8.6-10.3); Creatinine, Serum 0.85 mg/dL (0.51-0.95); Globulin 0.9 g/dL (2-4); Magnesium 2.5 mg/dL (1.9-2.7); Potassium 4.8 mmol/L (3.5-5.0); Total Bilirubin 11.6 mg/dL (0.2-1.0); Total Protein 3.2 g/dL (6.4-8.9); eGFR CKD-EPI 70.1 (>60)
[2023-07-22 07:46] LABS: ABS Monocytes 0.1 10^3/ul (0.0-0.9); ABS Neutrophils 1.8 10^3/ul (1.5-7.6)
[2023-07-22 07:47] LABS: Hematocrit 19.4 % (35-45); Hemoglobin 6.9 g/dL (11.5-14.3); Mean Corpuscular Hemoglobin 31.3 pg (27-33); Mean Corpuscular Hgb Conc 35.8 g/dL (31-36); Mean Corpuscular Volume 87.5 fL (80-97); Mean Platelet Volume 10.6 fL (7.5-11.2); Platelet Count 68 10^3/uL (150-450); Red Blood Count 2.21 10^6/uL (3.63-4.92); Red Cell Distribution Width 17.2 % (12-17); White Blood Count 1.9 10^3/uL (3.8-11.8)
[2023-07-22 07:48] LABS: ABS Lymphocytes 0.2 10^3/uL (1.0-4.8); ABS Monocytes 0.1 10^3/uL (0.0-0.9); ABS Neutrophils 1.6 10^3/uL (1.5-7.6); Anisocytosis 1+; Burr Cells 1+; Eosinophil % 0.3 %; Lymphocyte % 10.7 %; Nucleated Red Blood Cells % 0.1 %/100WBC (0.0-0.8); Toxic Granulation 2+
[2023-07-22] MEDS: Sulfamethox/Trimethoprim DS TAB 800/160 mg PO SCH (09:41)
[2023-07-22] MEDS: Dexamethasone IV 4 MG/ML VIAL 1 ml VIAL IV SLOW PU SCH (11:10)
[2023-07-22] MEDS: Lactulose 30 ml UDC PO SCH (16:02)
[2023-07-22 16:19] LABS: Urine Appearance Clear; Urine Bilirubin 1+ (Negative); Urine Blood Negative (Negative); Urine Color Dark-Yellow; Urine Glucose Negative (Negative); Urine Ketones Negative (Negative); Urine Nitrite Negative (Negative); Urine Protein Trace (Negative); Urine Specific Gravity 1.023 (1.002-1.030); Urine Urobilinogen Negative (Negative); Urine pH 5.5 (5.0-8.0)
[2023-07-22 18:32] LABS: Hematocrit 23.6 % (35-45); Hemoglobin 8.3 g/dL (11.5-14.3)
[2023-07-22] MEDS: Polyethylene Glycol 3350 17 GM PACKET PO SCH (20:11)
[2023-07-22] MEDS: Senna TAB 8.6 mg TAB PO SCH (20:12)
[2023-07-23 06:02] LABS: Urine Appearance Clear; Urine Bilirubin 2+ (Negative); Urine Blood 1+ (Negative); Urine Color Dark-Yellow; Urine Glucose Negative (Negative); Urine Ketones Negative (Negative); Urine Nitrite Negative (Negative); Urine Protein Trace (Negative); Urine Specific Gravity 1.026 (1.002-1.030); Urine Urobilinogen Negative (Negative); Urine pH 5.5 (5.0-8.0)
[2023-07-23 06:22] LABS: Calcium 7.4 mg/dL (8.6-10.3); Creatinine, Serum 0.78 mg/dL (0.51-0.95); Magnesium 2.3 mg/dL (1.9-2.7); Potassium 4.6 mmol/L (3.5-5.0); eGFR CKD-EPI 77.7 (>60)
[2023-07-23 06:54] LABS: Hematocrit 21.5 % (35-45); Hemoglobin 7.6 g/dL (11.5-14.3); Mean Corpuscular Hemoglobin 30.6 pg (27-33); Mean Corpuscular Hgb Conc 35.3 g/dL (31-36); Mean Corpuscular Volume 86.7 fL (80-97); Platelet Count 50 10^3/uL (150-450); Red Blood Count 2.47 10^6/uL (3.63-4.92); White Blood Count 4.4 10^3/uL (3.8-11.8)
[2023-07-23 07:14] LABS: Urine Amorphous Crystals Present /HPF (Absent); Urine Bacteria 1+ /HPF (Absent); Urine Red Blood Cell 1+(3-5/hpf) /HPF (0-Trace); Urine Squamous Epithelial Cell Present /HPF (Absent); Urine White Blood Cell 1+(6-10/hpf) /HPF (0-Trace)
[2023-07-23 09:15] LABS: Direct Bilirubin 9.4 mg/dL (0.03-0.18); Indirect Bilirubin 6.1 mg/dL (0.3-1.0); Phosphorus 2.4 mg/dL (2.5-5.0); Total Bilirubin 15.5 mg/dL (0.2-1.0)
[2023-07-23] MEDS ORDERED: fentaNYL 100 mcg/2 ml 50 MCG/ML VIAL ONE (15:39)
[2023-07-23] MEDS ORDERED: Midazolam 10 mg/10 ml VIAL 1 mg/ml 10 ml VIAL (10 mg) ONE (15:39)
[2023-07-23] MEDS: Nystatin SUSPENSION 100,000 UNITS/ML UDC PO SCH (17:53)
[2023-07-23] MEDS: Midazolam 10 mg/10 ml VIAL 1 mg/ml 10 ml VIAL (10 mg) IV SLOW PU ONE (17:55)
[2023-07-23] MEDS: Lactated Ringers 1000 ml BAG 1,000 ML IV ONE (17:55)
[2023-07-23] MEDS: fentaNYL 100 mcg/2 ml 50 MCG/ML VIAL IV SLOW PU ONE (17:56)
[2023-07-23 19:59] LABS: Mean Platelet Volume 9.2 fL (7.5-11.2); Platelet Count 52 10^3/uL (150-450)
[2023-07-24 00:35] LABS: Hematocrit 22.9 % (35-45); Hemoglobin 8.3 g/dL (11.5-14.3); Mean Corpuscular Hemoglobin 31.9 pg (27-33); Mean Corpuscular Hgb Conc 36.2 g/dL (31-36); Mean Platelet Volume 10.1 fL (7.5-11.2); Platelet Count 53 10^3/uL (150-450); Red Cell Distribution Width 16.7 % (12-17); White Blood Count 5.1 10^3/uL (3.8-11.8)
[2023-07-24 06:30] LABS: Calcium 7.4 mg/dL (8.6-10.3); Creatinine, Serum 0.68 mg/dL (0.51-0.95); Potassium 4.3 mmol/L (3.5-5.0); eGFR CKD-EPI 89.1 (>60)
[2023-07-24 06:33] LABS: Albumin 2.3 g/dL (3.2-5.2); Albumin/Globulin Ratio 2.9 (1-3); Globulin 0.8 g/dL (2-4); Magnesium 2.1 mg/dL (1.9-2.7); Total Bilirubin 16.9 mg/dL (0.2-1.0); Total Protein 3.1 g/dL (6.4-8.9)
[2023-07-24 07:10] LABS: Hemoglobin 8.6 g/dL (11.5-14.3); Mean Corpuscular Hemoglobin 31.5 pg (27-33); Mean Corpuscular Hgb Conc 35.7 g/dL (31-36); Mean Corpuscular Volume 88.3 fL (80-97); Mean Platelet Volume 9.6 fL (7.5-11.2); Platelet Count 48 10^3/uL (150-450); Red Blood Count 2.72 10^6/uL (3.63-4.92); Red Cell Distribution Width 16.7 % (12-17); White Blood Count 6.9 10^3/uL (3.8-11.8)
[2023-07-24] MEDS ORDERED: Psyllium PAK PO PRN (09:27)
[2023-07-24] MEDS: SMOG Enema (MgOH-NS-Gly-MinO) 330 ML ENEMA PR ONE (17:07)
[2023-07-25 06:12] LABS: Hematocrit 21.7 % (35-45); Hemoglobin 7.8 g/dL (11.5-14.3); Mean Corpuscular Hemoglobin 32.1 pg (27-33); Mean Corpuscular Hgb Conc 35.9 g/dL (31-36); Mean Corpuscular Volume 89.5 fL (80-97); Mean Platelet Volume 9.4 fL (7.5-11.2); Platelet Count 41 10^3/uL (150-450); Red Blood Count 2.43 10^6/uL (3.63-4.92); Red Cell Distribution Width 17.2 % (12-17); White Blood Count 8.1 10^3/uL (3.8-11.8)
[2023-07-25 06:41] LABS: Calcium 7.1 mg/dL (8.6-10.3); Creatinine, Serum 0.74 mg/dL (0.51-0.95); Potassium 4.4 mmol/L (3.5-5.0); eGFR CKD-EPI 82.8 (>60)
[2023-07-25 06:45] LABS: Albumin 2.2 g/dL (3.2-5.2); Albumin/Globulin Ratio 2.8 (1-3); Globulin 0.8 g/dL (2-4); Magnesium 2.2 mg/dL (1.9-2.7); Total Bilirubin 15.6 mg/dL (0.2-1.0)
[2023-07-25 11:18] LABS: Hematocrit 23.5 % (35-45); Hemoglobin 8.4 g/dL (11.5-14.3)
[2023-07-26 06:25] LABS: Hematocrit 24.6 % (35-45); Hemoglobin 8.6 g/dL (11.5-14.3); Mean Corpuscular Hgb Conc 35.2 g/dL (31-36); Mean Corpuscular Volume 91.1 fL (80-97); White Blood Count 8.4 10^3/uL (3.8-11.8)
[2023-07-26 06:59] LABS: Mean Platelet Volume 9.7 fL (7.5-11.2); Platelet Count 59 10^3/uL (150-450)
[2023-07-26 07:16] LABS: ALT 161 U/L (7-52); Albumin 2.3 g/dL (3.2-5.2); Albumin/Globulin Ratio 2.3 (1-3); Alkaline Phosphatase 422 U/L (35-149); Anion Gap 6 mmol/L (2-16); Blood Urea Nitrogen 21 mg/dL (6-24); CO2 Carbon Dioxide 19 mmol/L (22-32); Calcium 7.1 mg/dL (8.6-10.3); Chloride 104 mmol/L (101-111); Creatinine, Serum 0.64 mg/dL (0.51-0.95); Glucose 145 mg/dL (70-100); Magnesium 2.1 mg/dL (1.9-2.7); Sodium 129 mmol/L (135-145); Total Protein 3.3 g/dL (6.4-8.9); eGFR CKD-EPI 90.4 (>60)
[2023-07-27 07:09] LABS: Hematocrit 25.2 % (35-45); Hemoglobin 8.8 g/dL (11.5-14.3); Mean Corpuscular Hemoglobin 31.9 pg (27-33); Mean Corpuscular Volume 91.1 fL (80-97); Mean Platelet Volume 10.3 fL (7.5-11.2); Platelet Count 47 10^3/uL (150-450); Red Blood Count 2.77 10^6/uL (3.63-4.92); White Blood Count 8.7 10^3/uL (3.8-11.8)
[2023-07-27 07:19] LABS: Calcium 7.4 mg/dL (8.6-10.3); Creatinine, Serum 0.57 mg/dL (0.51-0.95); Potassium 4.3 mmol/L (3.5-5.0)
[2023-07-27 07:24] LABS: Albumin 2.4 g/dL (3.2-5.2); Albumin/Globulin Ratio 2.7 (1-3); Globulin 0.9 g/dL (2-4); Magnesium 2.1 mg/dL (1.9-2.7); Total Bilirubin 13.5 mg/dL (0.2-1.0); Total Protein 3.3 g/dL (6.4-8.9)
[2023-07-27] MEDS: Dexamethasone IV 4 MG/ML VIAL 1 ml VIAL IV SLOW PU SCH (13:49)
[2023-07-28 06:05] LABS: Urine Appearance Clear; Urine Bilirubin 2+ (Negative); Urine Blood Negative (Negative); Urine Color Dark-Yellow; Urine Glucose 3+ (>=300 mg/dL) (Negative); Urine Ketones Negative (Negative); Urine Nitrite Negative (Negative); Urine Protein Trace (Negative); Urine Specific Gravity 1.026 (1.002-1.030); Urine Urobilinogen Negative (Negative)
[2023-07-28 06:26] LABS: Hematocrit 24.6 % (35-45); Hemoglobin 8.7 g/dL (11.5-14.3); Mean Corpuscular Hemoglobin 32.4 pg (27-33); Mean Corpuscular Hgb Conc 35.2 g/dL (31-36); Mean Platelet Volume 10.1 fL (7.5-11.2); Platelet Count 58 10^3/uL (150-450); Red Blood Count 2.68 10^6/uL (3.63-4.92); Red Cell Distribution Width 17.1 % (12-17); White Blood Count 7.6 10^3/uL (3.8-11.8)
[2023-07-28 06:49] LABS: Calcium 7.2 mg/dL (8.6-10.3); Creatinine, Serum 0.58 mg/dL (0.51-0.95); Potassium 4.7 mmol/L (3.5-5.0); eGFR CKD-EPI 92.6 (>60)
[2023-07-28 06:55] LABS: Albumin 2.4 g/dL (3.2-5.2); Albumin/Globulin Ratio 2.4 (1-3); Magnesium 2.2 mg/dL (1.9-2.7); Total Bilirubin 12.1 mg/dL (0.2-1.0); Total Protein 3.4 g/dL (6.4-8.9)
[2023-07-28] MEDS: Enoxaparin 40 MG/0.4 ML SYR SUBCUT SCH (16:23)
[2023-07-29 06:07] VITALS: BP 144/77
[2023-07-29 06:44] LABS: Albumin 2.4 g/dL (3.2-5.2); Albumin/Globulin Ratio 2.7 (1-3); Calcium 7.2 mg/dL (8.6-10.3); Creatinine, Serum 0.63 mg/dL (0.51-0.95); Globulin 0.9 g/dL (2-4); Magnesium 2.2 mg/dL (1.9-2.7); Potassium 4.5 mmol/L (3.5-5.0); Total Bilirubin 11.4 mg/dL (0.2-1.0); Total Protein 3.3 g/dL (6.4-8.9); eGFR CKD-EPI 90.2 (>60)
[2023-07-29 06:52] LABS: Hematocrit 24.1 % (35-45); Hemoglobin 8.5 g/dL (11.5-14.3); Mean Corpuscular Hemoglobin 32.9 pg (27-33); Mean Corpuscular Hgb Conc 35.1 g/dL (31-36); Mean Corpuscular Volume 93.6 fL (80-97); Mean Platelet Volume 9.7 fL (7.5-11.2); Platelet Count 71 10^3/uL (150-450); Red Blood Count 2.57 10^6/uL (3.63-4.92); Red Cell Distribution Width 17.8 % (12-17); White Blood Count 7.6 10^3/uL (3.8-11.8)
[2023-07-29] MEDS: Dexamethasone IV 4 MG/ML VIAL 1 ml VIAL IV SLOW PU SCH (09:43)
[2023-07-30] MEDS ORDERED: Ondansetron ODT 4 mg TAB 4 MG TAB SL PRN (09:35)
[2023-07-30] MEDS ORDERED: Morphine ORAL CONCENTRATE 5 MG/0.25 ML ORAL.SYRIN SL PRN (09:35)
[2023-07-30] MEDS: Scopolamine 1 mg/72hr PATCH TRANSDERM SCH (11:27)
[2023-07-30] MEDS ORDERED: Lorazepam PYXIS KEY PRN (23:05)
[2023-07-30] MEDS: LORazepam 2 mg VIAL 1 ml IV PUSH PRN (23:18)
[2023-07-31 09:42] LABS: Rapid COVID-19 Molecular Undetected (Undetected)
[2023-07-31] MEDS ORDERED: diazePAM INJ CARPUJECT 5 MG/ML SYRINGE IV PRN (18:39)
== END 2023-08-01 11:42 | disposition hospice, inpatient (51) | DRG 841 ==
LOC: EDHOLD 11:57 → ED 11:57 → SUATTDRO 07-11 01:28 → MEDTELE 07-11 02:48 → SUATTDRO 07-12 17:30
PROVIDERS: ADMIT Internal Medicine; ATTEND Internal Medicine